=== PATIENT | male | born 1955 | race Asian ===

== ENCOUNTER 2024-12-31 09:04 | Day surgery (SDC) | payer OTHER, SELFPAY ==
[2024-12-31] VITALS (16 sets, daily range): BP systolic 87–155; BP diastolic 61–70; BMI 25.8
[2024-12-31 09:27] LABS: Hematocrit 43.8 % (39.0-52.0); Hemoglobin 15.4 g/dL (13.0-18.0); Mean Corp Hgb Conc. 35.2 g/dL (33.0-37.0); Mean Corpuscular Volume 90.5 fL (80.0-94.0); Platelet Count 307 10^3/uL (130-400); Red Cell Dist. Width 13.1 % (11.5-14.5)
[2024-12-31 09:41] LABS: ALT (SGPT) 22 U/L (0-50); AST (SGOT) 27 U/L (17-59); Albumin 5.0 g/dl (3.5-5.0); Alkaline Phosphatase 53 U/L (38-126); Blood Urea Nitrogen 22 mg/dl (9-20); Calcium 10.8 mg/dl (8.4-10.2); Carbon Dioxide 27 mmol/L (22-30); Chloride 106 mmol/L (98-107); Estimated Creatinine Clearance 47 ml/min; Glucose 115 mg/dl (70-99); Potassium 4.3 mmol/L (3.5-5.1); Sodium 140 mmol/L (135-145); Total Protein 8.1 g/dl (6.3-8.2); eGFR 59.47
[2024-12-31] MEDS: LOW STRENGTH ASPIRIN 81 MG PO (09:51)
[2024-12-31] MEDS: NSS 211 ML IV (10:10)
--- NOTE | 2024-12-31 12:08 | ITS.CL.CATH ---
Surgical Consultant - Catheterization
Cardiac Catheterization
Procedure Report:
LEFT HEART CATHETERIZATION
Date of Procedure: December 31, 2024
Referring: Jinny Rogers MD
PROCEDURES:
1. Left heart catheterization, coronary angiogram.
2. Moderate sedation.
INDICATION: Abnormal stress test
ACCESS: Right radial artery, 6Fr. sheath, under US guidance.
HEMODYNAMICS : (mmHg)
AO (s/d) : 136/72
LVEDP : 20
No significant gradient across the aortic valve to suggest aortic stenosis.
CORONARY FINDINGS
Dominance: Right
Left Main Trunk (LMT): Large caliber vessel that gives rise to the LAD and LCx branches. There is mild diffuse atherosclerotic plaque.
Left Anterior Descending Artery (LAD): Large caliber vessel that gives off 2 major diagonal branches as it courses along the anterior inter-ventricular groove before wrapping around the cardiac apex. Mid LAD has tubular 30 to 40% stenosis.
Otherwise there is mild diffuse atherosclerotic plaque.
Left Circumflex Artery (LCx): Large caliber vessel that gives off 1 major arborizing obtuse marginal (OM) branches as it courses along the atrio-ventricular (AV) groove. The LCx and its branches are free of angiographic disease.
Right Coronary Artery (RCA): Large caliber dominant vessel that gives rise to the posterior descending artery (RPDA) and postero-lateral ventricular (RPLV) branches distally. RCA is moderately tortuous. The RCA and its branches are free of
angiographic disease.
SEDATION: 19 minutes of procedural sedation was utilized. IV Midazolam and IV Fentanyl were administered. An independent medical administrative was present to assist with and help manage the patient's level of consciousness and physiologic status.
RADIATION SUMMARY: Fluoro Time (min): 1.7, Dose (mGy): 398, DAP (Gy.cm2) : 22.0
Closure Device: There were no immediate intra-procedural complications. The sheath was pulled in the lab engineer and a vascular-band applied to the right wrist for radial artery hemostasis using the patent hemostasis technique.
CONCLUSIONS
1. No obstructive coronary artery disease.
2. LVEDP of 20 mmHg.
RECOMMENDATIONS
1. Wean radial band per protocol. Monitor right hand perfusion and for bleeding from the radial site following removal of the vascular-band following trans-radial access.
2. Continue aggressive medical therapy and risk factor modification for secondary CAD prevention.
3. Hydrate with normal saline to mitigate the risk of contrast-induced acute kidney injury.
4. Strongly emphasized importance of complete smoking cessation.
5. Follow-up with Dr. Rogers
Cherry Bradford MD, [facility], [facility]
Copy to: Jinny Rogers MD
== END 2024-12-31 15:15 | disposition home or self-care (01) ==
LOC: CATH 09:04
PROVIDERS: ATTENDING PHYSICIAN Internal Medicine Interventional Cardiology; FAMILY PHYSICIAN Student in an Organized Health Care Education/Training Program
DX: R94.39 Abnormal result of other cardiovascular function study (principal); E78.5 Hyperlipidemia, unspecified; N18.30 Chronic kidney disease, stage 3 unspecified; R07.89 Other chest pain; E03.9 Hypothyroidism, unspecified
CPT/HCPCS: 99152; 80053; 85027; 93005; 93458; C1769; C1894; Q9967